=== PATIENT | male | born 1955 | race Caucasian/White ===

== ENCOUNTER → 2024-05-16 08:31 | Outpatient (REF) | payer SELFPAY | LOC: HWRAD 08:31 | PROVIDERS: ATTENDING PHYSICIAN Student in an Organized Health Care Education/Training Program | DX: E78.5 Hyperlipidemia, unspecified (principal); Z86.39 Personal history of other endocrine, nutritional and metabolic disease; Z00.00 Encounter for general adult medical examination without abnormal findings | CPT/HCPCS: 75571 ==